=== PATIENT | female | born 1930 | race Caucasian/White ===

== ENCOUNTER 2018-02-12 17:52 | Emergency (ER) | payer MEDICARE, BC, MEDICAID ==
[2018-02-12 18:05] VITALS: BP 154/75
[2018-02-12] MEDS ORDERED: Albuterol/Ipratropium 3.0-0.5 MG/3 ML Neb Soln NEB ONE (18:09)
--- NOTE | 2018-02-12 18:14 | EDM.PDOC ---
ED HPI GENERAL MEDICAL PROBLEM - General Chief Complaint: Neurological Problem Stated Complaint: [facility] Time Seen by Provider: 02/12/18 17:56 Source of Information: Reports: Patient, RN Notes Reviewed - History of Present Illness INITIAL COMMENTS - FREE TEXT/NARRATIVE: 79-year-old female who's been brought in by [facility] for evaluation of slurred speech generalized weakness. The symptoms occurred just a short time ago at the [facility] where she lives. Upon EMS arrival she did not have slurred speech and she did not have any focal weakness. She was transported here without further incident or difficulty. On arrival to ED patient really has no complaints at this time. She states she did feel somewhat weak, dizzy and lightheaded. She had seen Dr. Black at the clinic earlier today for cough that she has had the last several days. It appears that she is been started on Zithromax. She has not been coughing anything up. No recent fever or chills. She denies chest or abdominal pain at this time. No nausea or vomiting. On further questioning it appears that she had been napping after her visit to the clinic. In terms came on when she got up to walk for dinner. She does remember feeling weak, lightheaded and dizzy. As noted no chest pain or difficulty breathing. - Related Data Allergies Allergy/AdvReac Type Severity Reaction Status Date / Time Penicillins Allergy Rash Verified 02/12/18 18:04 Sulfa (Sulfonamide AdvReac Burning on Verified 02/12/18 18:04 Antibiotics) Urination Home Meds: Home Meds Acetaminophen [Tylenol Arthritis Pain] 1,300 mg PO BID 02/06/14 [History] Anastrozole [Arimidex] 1 mg PO DAILY 02/06/14 [History] Diltiazem IR [Cardizem] 30 mg PO BID 02/06/14 [History] Flunisolide [Nasalide Nasal [place]] 2 spray CASTRO BID 02/06/14 [History] Furosemide [Lasix] 20 mg PO BID 02/06/14 [History] Gabapentin [Neurontin] 300 mg PO BID 02/06/14 [History] Insulin Aspart [NovoLOG] 2 unit SQ TID 02/06/14 [History] Insulin Glarg,Human.Rec.Analog [Lantus] 14 unit SUBCUT QAM 12/21/14 [History] Levothyroxine 50 mcg PO DAILY 02/06/14 [History] Lisinopril 5 mg PO PCLUN 02/06/14 [History] Methadone 5 mg PO BID 02/06/14 [History] Albuterol [Proventil HFA] 2 puff INH Q4H PRN 04/20/15 [History] Triamcinolone Acetonide [IJD: Triamcinolone Acetonide 0.1% Crm] 1 dose TOP BID PRN 07/03/15 [History] Fenofibrate 160 mg PO DAILY 09/18/17 [History] Folic Acid 800 mcg PO DAILY 09/18/17 [History] Meclizine [Antivert] 12.5 mg PO Q6HR PRN 09/18/17 [History] Vitamin B6-pyridOXINE 100 mg PO DAILY 09/18/17 [History] Albuterol Sulfate 2.5 mg INH DAILY 09/21/17 [History] Ascorbate Calcium [Vitamin C] 500 mg PO DAILY 09/21/17 [History] Loratadine [Claritin] 10 mg PO DAILY 09/21/17 [History] Nystatin [Nystatin Crm] 1 applic TOP DAILY PRN 09/21/17 [History] Cholecalciferol (Vitamin D3) [Vitamin D3] 5,000 unit PO DAILY #30 tablet [Rx] Dextromethorphan/guaiFENesin [Robitussin DM] 10 ml PO TID@0800,1400,2100 #180 cup 09/26/17 [Rx] Mometasone/Formoterol [Dulera 100-5 MCG] 2 puff IH BID@0800,2000 #1 inhaler 12/04 [Rx] Saccharomyces Boulardii [Florastor] 250 mg PO DAILY #30 cap 09/26/17 [Rx] levoFLOXacin [Levaquin] 500 mg PO Q24H #5 tablet 09/26/17 [Rx] Past Medical History HEENT History: Reports: Impaired Vision Cardiovascular History: Reports: Heart Failure, High Cholesterol, Hypertension Respiratory History: Reports: Asthma, Bronchitis, Recurrent Genitourinary History: Reports: Chronic Renal Insuffiency SURGICAL GARMENT FITTER History: Reports: Other SURGICAL GARMENT FITTER History: right lumpectomy-with cancer;had chemo and radiation Musculoskeletal History: Reports: Arthritis, Back Pain, Chronic Other Musculoskeletal History: right frozen shoulder;spinal stenosis Neurological History: Reports: Other (See Below) Other Neuro History: syncope Psychiatric History: Reports: Depression Endocrine/Metabolic History: Reports: Diabetes, Type II, Hypothyroidism 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 - Infectious Disease History Infectious Disease History: Reports: Chicken Pox - Past Surgical History HEENT Surgical History: Reports: None Cardiovascular Surgical History: Reports: None Respiratory Surgical History: Reports: None GI Surgical History: Reports: Appendectomy Female Surgical History: Reports: Breast Biopsy Musculoskeletal Surgical History: Reports: Knee Replacement Other Musculoskeletal Surgeries/Procedures:: bilateral knees Oncologic Surgical History: Reports: None Social & Family History - Family History Family Medical History: Noncontributory - Tobacco Use Smoking Status *Q: Never Smoker - Caffeine Use Caffeine Use: Reports: None - Recreational Drug Use Recreational Drug Use: No - Living Situation & Occupation Living situation: Reports: Assisted Living Occupation: Retired ED ROS GENERAL - Review of Systems Review Of Systems: See Below Constitutional: Denies: Fever, Chills HEENT: Denies: Sinus Problem, Throat Pain Respiratory: Reports: Shortness of Breath (Occasional), Cough. Denies: Sputum Cardiovascular: Denies: Chest Pain GI/Abdominal: Denies: Abdominal Pain, Nausea, Vomiting Musculoskeletal: Denies: Shoulder Pain, Arm Pain, Leg Pain Skin: Reports: No Symptoms Neurological: Reports: Dizziness, Numbness (She did have a small amount of numbness around her mouth that is gone), Weakness (Generalized no better), Other ED EXAM, NEURO - Physical Exam Exam: See Below General Appearance: Alert, No Apparent Distress Eye Exam: Bilateral Eye: PERRL Throat/Mouth: Normal Inspection, Normal Oropharynx Head Exam: Atraumatic. No: Facial Swelling Neck: Supple Respiratory/Chest: No Respiratory Distress, Lungs Clear, Wheezing (Mild bilateral). No: Respiratory Distress, Rales, Rhonchi Cardiovascular: Regular Rate, Rhythm GI/Abdominal: Soft, Non-Tender. No: Guarding Neurological: Alert, No Motor/Sensory Deficits, Other (Finger to nose testing normal, no focal weakness, no facial droop, speech normal) Back Exam: No: CVA Tenderness (L), CVA Tenderness (R) Extremities: Normal Inspection, Pedal Edema (For mild bilateral). No: Leg Pain Skin Exam: Warm, Dry, Normal Color EKG INTERPRETATION EKG Date: 02/12/18 Rhythm: NSR [place]: Normal P-Wave: Present QRS: Other (Q waves inferior leads) ST-T: Normal Course - Vital Signs Last Recorded V/S: Last Vital Signs Temp 98.2 F 02/12/18 17:57 Pulse 98 02/12/18 17:57 Resp 18 02/12/18 17:57 BP 154/75 H 02/12/18 17:57 Pulse Ox 98 02/12/18 18:24 - Orders/Labs/Meds Orders: Active Orders 24 hr Category Date Time Status EKG 12 Lead [EKG Documentation Completion] [RC] STAT Care 02/12/18 18:07 Active Peripheral IV Care [RC] . DIRECTED Care 02/12/18 19:52 Ordered RT Aerosol Therapy [RC] ASDIRECTED Care 02/12/18 18:09 Active Sodium Chloride 0.9% [Normal Saline] 500 ml Med 02/12/18 19:52 Ordered IV .BOLUS Sodium Chloride 0.9% [Saline Flush] Med 02/12/18 19:52 Ordered 10 ml FLUSH ASDIRECTED PRN Peripheral IV Insertion Adult [OM.PC] Stat Oth 02/12/18 19:52 Ordered Labs: Laboratory Tests 02/12/18 02/12/18 Range/Units 19:00 19:00 WBC 5.11 (3.98-10.04) K/mm3 RBC 3.24 L (3.98-5.22) M/mm3 Hgb 10.0 L (11.2-15.7) gm/L Hct 32.8 L (34.1-44.9) % MCV 101.2 H (79.4-94.8) fl MCH 30.9 (25.6-32.2) pg MCHC 30.5 L (32.2-35.5) g/dl RDW Std Deviation 53.0 H (36.4-46.3) fL Plt Count 127 L (182-369) K/mm3 MPV 10.1 (9.4-12.3) fl Neut % (Auto) 82.9 H (34.0-71.1) % Lymph % (Auto) 11.4 L (19.3-51.7) % [place] % (Auto) 5.5 (4.7-12.5) % Eos % (Auto) 0 L (0.7-5.8) Baso % (Auto) 0.0 L (0.1-1.2) % Neut # (Auto) 4.24 (1.56-6.13) K/mm3 Lymph # (Auto) 0.58 L (1.18-3.74) K/mm3 [place] # (Auto) 0.28 (0.24-0.36) K/mm3 Eos # (Auto) 0.00 L (0.04-0.36) K/mm3 Baso # (Auto) 0.00 L (0.01-0.08) K/mm3 Sodium 144 (136-145) mEq/L Potassium 3.4 L (3.5-5.1) mEq/L Chloride 101 (98-107) mEq/L Carbon Dioxide 31 (21-32) mEq/L Anion Gap 15.4 H (5-15) BUN 61 H (7-18) mg/dL Creatinine 2.0 H (0.55-1.02) mg/dL Est Cr Clr Drug Dosing 15.38 mL/min Estimated GFR (MDRD) 24 (>60) mL/min BUN/Creatinine Ratio 30.5 H (14-18) Glucose 172 H (83-115) mg/dL Calcium 9.2 (8.5-10.1) mg/dL Total Bilirubin 0.6 (0.2-1.0) mg/dL AST 31 (15-37) U/L ALT 30 (14-59) U/L Alkaline Phosphatase 62 (46-116) U/L Total Protein 6.7 (6.4-8.2) g/dl Albumin 3.7 (3.4-5.0) g/dl Globulin 3.0 gm/dL Albumin/Globulin Ratio 1.2 (1-2) Meds: Medications Discontinued Medications Generic Name Dose Route Start Last Admin Trade Name Freq PRN Reason Stop Dose Admin Albuterol/Ipratropium 3 ml 02/12/18 18:09 02/12/18 18:24 Duoneb 3.0-0.5 Mg/3 Ml NEB 02/12/18 18:10 3 ml ONETIME ONE Administration - Re-Assessments/Exams Free Text/Narrative Re-Assessment/Exam: 02/12/18 19:28 EKG is normal, sinus rhythm, no ectopy. Head CT is come back normal. CBC also normal, awaiting chemistries at this time. Patient remains asymptomatic while here in the ED. 02/12/18 19:54 labs show the BUN/creatinine and gap are very mildly elevated, her mouth is quite dry. Good he has not drank as much water today is she should have with her clinic visit and other stuff going on. Give her a 500 mL normal saline bolus. I do not see any sign of stroke and with the generalized weakness that she had rather than focal this was not a TIA. Therefore it should be safe for her to go home after fluid bolus given. Departure - Departure Time of Disposition: 20:45 Disposition: Home, Self-Care 01 Preliminary Cause of *Q: Sepsis & Multi System Organ Failure Clinical Impression: Near syncope, Dehydration, Renal insufficiency - Discharge Information Forms: ED Department Discharge Additional Instructions: If it any time you do get weak or dizzy again when standing or walking you need to sit down, preferably lie down so you do not fall or hurt herself. Continue current medications as prescribed. Drink plenty of water to maintain hydration. Follow up clinic as needed, return to ED as needed if symptoms worsening in any way. - My Orders Last 24 Hours: My Active Orders 02/12/18 18:07 EKG 12 Lead [EKG Documentation Completion] [RC] STAT 02/12/18 18:09 RT Aerosol Therapy [RC] ASDIRECTED 02/12/18 19:52 Peripheral IV Care [RC] . DIRECTED Sodium Chloride 0.9% [Normal Saline] 500 ml IV .BOLUS Sodium Chloride 0.9% [Saline Flush] 10 ml FLUSH ASDIRECTED PRN Peripheral IV Insertion Adult [OM.PC] Stat - Assessment/Plan Last 24 Hours: My Active Orders 02/12/18 18:07 EKG 12 Lead [EKG Documentation Completion] [RC] STAT 02/12/18 18:09 RT Aerosol Therapy [RC] ASDIRECTED 02/12/18 19:52 Peripheral IV Care [RC] . DIRECTED Sodium Chloride 0.9% [Normal Saline] 500 ml IV .BOLUS Sodium Chloride 0.9% [Saline Flush] 10 ml FLUSH ASDIRECTED PRN Peripheral IV Insertion Adult [OM.PC] Stat
--- NOTE | 2018-02-12 19:14 | CT ---
Head CT Technique: Multiple axial sections through the brain were obtained. Intravenous contrast was not utilized. Comparison: Previous head CT exam of 07/11/15. Findings: Ventricles along with basal cisterns and sulci over the convexities are mildly prominent. Minimal diminished density is noted within the periventricular white matter compatible with small vessel ischemic demyelination change. Slight decreased density is noted within the basal ganglia on both sides likely of similar etiology. These findings are felt to be fairly stable from previous exam. No other abnormal parenchymal densities are seen. No evidence of intracranial hemorrhage. No midline shift or mass effect is seen. Bone window settings were reviewed which shows mild mucosal thickening within the left sphenoid sinus. Other visualized sinuses are clear. Atherosclerotic calcification is seen within the carotid siphon. No acute calvarial abnormality is seen. Impression: 1. Slight mucosal thickening within left sphenoid sinus. This is most likely incidental. 2. Mild senescent change as noted above. 3. No acute intracranial abnormality is identified. Diagnostic code #2
[2018-02-12] MEDS ORDERED: Sodium Chloride 0.9% 10 ML Syringe FLUSH PRN (19:52)
[2018-02-12] MEDS ORDERED: Sodium Chloride 0.9% 500 ML IV ONE (19:52)
== END 2018-02-12 20:50 | disposition home or self-care (01) ==
LOC: JD.ED 17:52
DX: I13.0 Hypertensive heart and chronic kidney disease with heart failure and stage 1 through stage 4 chronic kidney disease, or unspecified chronic kidney disease (principal); E86.0 Dehydration; E11.22 Type 2 diabetes mellitus with diabetic chronic kidney disease; N18.9 Chronic kidney disease, unspecified; I50.9 Heart failure, unspecified; E78.00 Pure hypercholesterolemia, unspecified; F32.9 Major depressive disorder, single episode, unspecified; E03.9 Hypothyroidism, unspecified; Z79.4 Long term (current) use of insulin; Z88.0 Allergy status to penicillin; Z88.2 Allergy status to sulfonamides; Z79.899 Other long term (current) drug therapy
CPT/HCPCS: 36415; 70450; 80053; 85025; 93005; 94640; 96360; 99285; J7040; J7620-GY